=== PATIENT | female | born 1990 | race Caucasian/White ===

== ENCOUNTER 2023-04-05 19:37 | Emergency (ER) | payer OTHER ==
[2023-04-05] MEDS ORDERED: methylPREDNISolone Sod Succ/PF 125 MG/2 ML VIAL ONE (20:54)
[2023-04-05] MEDS ORDERED: Cyclobenzaprine 10 MG TAB ONE (20:54)
== END 2023-04-05 21:32 | disposition home or self-care (01) ==
LOC: NAV ERS 19:37
DX: M54.16 Radiculopathy, lumbar region (principal); E11.9 Type 2 diabetes mellitus without complications; I10 Essential (primary) hypertension; Z79.84 Long term (current) use of oral hypoglycemic drugs; Z79.899 Other long term (current) drug therapy
CPT/HCPCS: 96372; 99283; J2930